=== PATIENT | female | born 2000 | race African-American/Black ===

== ENCOUNTER 2019-05-31 01:05 | Emergency (ER) | payer SELFPAY ==
[~2019-05-31] VITALS: Ht 167.6 cm; Wt 87.1 kg
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
== END 2019-05-31 01:31 | disposition left against medical advice (07) ==
LOC: ER 01:05
DX: R55 Syncope and collapse (principal)
CPT/HCPCS: 93005; A4663